=== PATIENT | female | born 1990 | race African-American/Black ===

== ENCOUNTER 2017-09-07 14:47 | Emergency (ER) | payer MEDICAID ==
[~2017-09-07] VITALS: Ht 170.2 cm; Wt 80.0 kg
[2017-09-07] MEDS ORDERED: IBUPROFEN 400MG TABLET PO ONE (16:15)
[2017-09-07] MEDS ORDERED: ACETAMINOPHEN 500MG TABLET PO ONE ×2 (16:15→16:30)
[2017-09-07 16:22] VITALS: BP 121/76
== END 2017-09-07 16:53 | disposition home or self-care (01) ==
LOC: ER 15:02
DX: M54.5 Low back pain (principal); Z87.828 Personal history of other (healed) physical injury and trauma
CPT/HCPCS: 99283

== ENCOUNTER 2017-10-04 18:14 | Emergency (ER) | payer MEDICAID ==
[~2017-10-04] VITALS: Ht 162.6 cm; Wt 80.0 kg
[2017-10-04 22:13] LABS: BASOPHILS % 0.3 % (0.0-2.0); EOSINOPHILS % 1.8 % (0.0-5.0); HEMATOCRIT. 30.8 % (36.0-48.0); HEMOGLOBIN. 11.1 g/dL (12.0-16.0); LYMPHOCYTES % 33.5 % (20.0-50.0); MEAN CORPUSCULAR HEMOGLOBIN 34.9 pg (28.0-32.0); MEAN CORPUSCULAR VOLUME 97.1 fL (81.0-99.0); MEAN PLATELET VOLUME 7.1 fl (7.4-10.4); MONOCYTES % 7.3 % (2.0-8.0); NEUTROPHILS % 57.1 % (40.0-76.0); PLATELET 299 x1000/uL (130-400); RED BLOOD CELL COUNT 3.17 mill/uL (4.2-5.4); RED CELL DISTRIBUTION WIDTH 13.2 % (11.6-14.6)
[2017-10-04 22:18] LABS: CHLORIDE 107 mEq/L (98-107)
[2017-10-04 22:23] LABS: ETHANOL BLOOD < 10 mg/dL
[2017-10-04] MEDS ORDERED: ALBUTEROL (0.083%) 2.5MG/3ML NEB HHN ONE (23:00)
[2017-10-05 00:05] VITALS: BP 112/75
== END 2017-10-05 00:18 | disposition home or self-care (01) ==
LOC: ER 18:14
DX: Z76.0 Encounter for issue of repeat prescription (principal); F20.9 Schizophrenia, unspecified; F41.9 Anxiety disorder, unspecified; J45.909 Unspecified asthma, uncomplicated; F32.9 Major depressive disorder, single episode, unspecified
CPT/HCPCS: 36415; 80048; 80307; 80329; 85025; 99284; G0482; J7611

== ENCOUNTER 2018-01-07 08:40 | Emergency (ER) | payer MEDICAID ==
[~2018-01-07] VITALS: Ht 162.6 cm; Wt 82.4 kg
[2018-01-07] MEDS ORDERED: qvar (08:57)
[2018-01-07] MEDS ORDERED: singulair (08:57)
[2018-01-07] MEDS ORDERED: albuterol (08:57)
[2018-01-07 11:25] VITALS: BP 109/70
== END 2018-01-07 12:00 | disposition home or self-care (01) ==
LOC: ER 08:40
DX: O99.513 Diseases of the respiratory system complicating pregnancy, third trimester (principal); R10.9 Unspecified abdominal pain; J45.909 Unspecified asthma, uncomplicated; Z3A.28 28 weeks gestation of pregnancy
CPT/HCPCS: 76805; 81025; 99284

== ENCOUNTER 2018-01-18 23:02 | Emergency (ER) | payer MEDICAID ==
[~2018-01-18] VITALS: Ht 162.6 cm; Wt 69.0 kg
[~2018-01-18 23:02] MED LIST: albuterol; qvar; singulair
[2018-01-18] MEDS ORDERED: ALBUTEROL (0.083%) 2.5MG/3ML NEB HHN STA (23:35)
[2018-01-19 01:10] VITALS: BP 121/86
== END 2018-01-19 02:00 | disposition home or self-care (01) ==
LOC: ER 23:02
DX: O99.513 Diseases of the respiratory system complicating pregnancy, third trimester (principal); J45.901 Unspecified asthma with (acute) exacerbation; Z3A.29 29 weeks gestation of pregnancy
CPT/HCPCS: 93005; 94640; 99283; G0378; J7611

== ENCOUNTER 2018-03-08 11:10 | Emergency (ER) | payer MEDICAID ==
[~2018-03-08] VITALS: Ht 162.6 cm; Wt 100.0 kg
[2018-03-08 11:16] VITALS: BP 117/68
== END 2018-03-08 13:19 | disposition left against medical advice (07) ==
LOC: ER 12:13
DX: Z53.21 Procedure and treatment not carried out due to patient leaving prior to being seen by health care provider (principal)

== ENCOUNTER 2018-03-21 23:28 | Observation (INO) | payer MEDICAID ==
[2018-03-22] MEDS ORDERED: LACTATED RINGERS 1,000 ML IV SCH (00:20)
== END 2018-03-22 02:41 | disposition home or self-care (01) ==
LOC: INTOOBSV 23:28 → OBSVTOIN 23:28 → 8 EST LDRP 23:28
PROVIDERS: ADMIT Obstetrics & Gynecology; ATTEND Obstetrics & Gynecology
DX: O48.0 Post-term pregnancy (principal); O26.893 Other specified pregnancy related conditions, third trimester; R10.30 Lower abdominal pain, unspecified; M54.5 Low back pain; R10.2 Pelvic and perineal pain; Z3A.40 40 weeks gestation of pregnancy
CPT/HCPCS: G0378 ×2

== ENCOUNTER 2018-03-22 08:43 | Inpatient (IN) | payer MEDICAID ==
[~2018-03-22] VITALS: Ht 162.6 cm; Wt 90.7 kg
[2018-03-22] MEDS ORDERED: DEXT 5%/LR + PITOCIN 20UNITS/L 1,000 ML IV SCH ×2 (09:30→14:00)
[2018-03-22] MEDS ORDERED: CARBOPROST TROMETHAMINE 250 MCG/ML AMPUL IM PRN (09:30)
[2018-03-22] MEDS ORDERED: METHYLERGONOVINE MALEATE 0.2 MG/ML IM PRN (09:30)
[2018-03-22] MEDS ORDERED: BUTORPHANOL TARTRATE 2 MG/ML VIAL IV PRN (09:30)
[2018-03-22] MEDS ORDERED: NALOXONE HCL 0.4 MG/ML 1ML VIAL IM PRN (09:30)
[2018-03-22] MEDS: LACTATED RINGERS 1,000 ML IV SCH ×2 (09:53→12:32)
[2018-03-22] MEDS ORDERED: PENICILLIN G POTASSIUM 5 MMU in DEXT 5% WATER 100 ML IV SCH (10:00)
[2018-03-22 10:10] LABS: HEMATOCRIT. 40.5 % (36.0-48.0); MEAN CORPUSCULAR HEMOGLOBIN 34.1 pg (28.0-32.0); MEAN CORPUSCULAR VOLUME 98.6 fL (81.0-99.0); MEAN PLATELET VOLUME 8.5 fl (7.4-10.4); PLATELET 222 x1000/uL (130-400); RED BLOOD CELL COUNT 4.11 mill/uL (4.2-5.4); RED CELL DISTRIBUTION WIDTH 14.7 % (11.6-14.6)
[2018-03-22 10:17] LABS: CLARITY URINE CLOUDY (CLEAR); COLOR URINE YELLOW (YELLOW); KETONES URINE 1+ (NEGATIVE); LEUKOCYTE ESTERASE URINE 2+ (NEGATIVE); NITRITE URINE NEGATIVE (NEGATIVE); OCCULT BLOOD URINE 3+ (NEGATIVE); PROTEIN URINE NEGATIVE (NEGATIVE); SPECIFIC GRAVITY URINE 1.024 (1.005-1.030)
[2018-03-22 10:23] LABS: INR 0.9; PROTHROMBIN TIME 9.3 sec (9.1-11.1)
[2018-03-22 11:28] LABS: *AMPHETAMINES SCREEN URINE NEGATIVE (NEGATIVE); *BARBITURATES SCREEN URINE NEGATIVE (NEGATIVE); *BENZODIAZEPINES SCREEN URINE NEGATIVE (NEGATIVE); *COCAINE SCREEN URINE NEGATIVE (NEGATIVE); METHADONE URINE SCREEN NEGATIVE (NEGATIVE); OPIATES URINE SCREEN NEGATIVE (NEGATIVE)
[2018-03-22 11:29] LABS: CANNABINOID URINE SCREEN NEGATIVE (NEGATIVE); PHENCYCLIDINE URINE SCREEN NEGATIVE (NEGATIVE)
[2018-03-22] MEDS ORDERED: BUPIVACAINE HCL/NS/PF EPIDURAL 100 ML EP ONE (12:03)
[2018-03-22 12:49] LABS: HEPATITIS B SURFACE ANTIGEN NEGATIVE
[2018-03-22 13:05] LABS: PLATELET ESTIMATE NORMAL
[2018-03-22] MEDS ORDERED: GLYCERIN/WITCH HAZEL LEAF MEDICATED PAD TOP PRN (13:45)
[2018-03-22] MEDS ORDERED: BISACODYL 10MG SUPP PR PRN (13:45)
[2018-03-22] MEDS ORDERED: BENZOCAINE/LANOLIN/ALOE VERA SPRAY TOP PRN (13:45)
[2018-03-22] MEDS ORDERED: HEMORRHOIDAL SUPP PR PRN (13:45)
[2018-03-22] MEDS ORDERED: PENICILLIN G POTASSIUM 2.5 MMU in DEXTROSE 5% WATER 50 ML IV SCH (14:00)
[2018-03-22] MEDS: ACETAMINOPHEN WITH CODEINE 300/30MG TABLET PO PRN ×2 (14:21→22:22)
[2018-03-22 14:35] VITALS: BP 125/78
[2018-03-22 15:00] VITALS: BP 124/74
[2018-03-22 16:56] VITALS: BP 116/66
[2018-03-22] MEDS: SIMETHICONE 80MG TABLET CHEW PO SCH (21:00)
[2018-03-22] MEDS: MAGNESIUM/ALUMINUM HYDROXIDE/SIMETHICONE 30ML UDC PO SCH (21:00)
[2018-03-22] MEDS: DOCUSATE SODIUM 100MG CAPSULE PO SCH (21:35)
[2018-03-22 22:00] VITALS: BP 135/86
[2018-03-23] MEDS: ACETAMINOPHEN WITH CODEINE 300/30MG TABLET PO PRN ×2 (01:55→18:48)
[2018-03-23 04:00] VITALS: BP 128/84
[2018-03-23 07:30] VITALS: BP 116/77
[2018-03-23] MEDS ORDERED: FERROUS SULFATE 325MG TABLET PO SCH (07:30)
[2018-03-23 07:39] LABS: BASOPHILS % 0.2 % (0.0-2.0); EOSINOPHILS % 0.3 % (0.0-5.0); HEMATOCRIT. 34.2 % (36.0-48.0); HEMOGLOBIN. 11.9 g/dL (12.0-16.0); LYMPHOCYTES % 20.6 % (20.0-50.0); MEAN CORPUSCULAR HEMOGLOBIN 34.4 pg (28.0-32.0); MEAN PLATELET VOLUME 8.5 fl (7.4-10.4); MONOCYTES % 7.9 % (2.0-8.0); PLATELET 199 x1000/uL (130-400); RED BLOOD CELL COUNT 3.46 mill/uL (4.2-5.4); RED CELL DISTRIBUTION WIDTH 14.7 % (11.6-14.6)
[2018-03-23] MEDS: PRENATAL VIT/FE FUMARATE/FA TABLET PO SCH (08:35)
[2018-03-23] MEDS: SIMETHICONE 80MG TABLET CHEW PO SCH ×2 (08:36→21:14)
[2018-03-23 20:50] VITALS: BP 112/77
[2018-03-23] MEDS: DOCUSATE SODIUM 100MG CAPSULE PO SCH (21:14)
[2018-03-24 04:50] VITALS: BP 117/81
[2018-03-24] MEDS: ACETAMINOPHEN WITH CODEINE 300/30MG TABLET PO PRN (06:22)
[2018-03-24 08:00] VITALS: BP 116/81
[2018-03-24] MEDS: MAGNESIUM/ALUMINUM HYDROXIDE/SIMETHICONE 30ML UDC PO SCH (08:19)
[2018-03-24] MEDS: SIMETHICONE 80MG TABLET CHEW PO SCH (08:19)
[2018-03-24] MEDS: PRENATAL VIT/FE FUMARATE/FA TABLET PO SCH (08:19)
== END 2018-03-24 12:05 | disposition home or self-care (01) | DRG 560 ==
LOC: OBSVTOIN 08:43 → 8 EST LDRP 08:43 → CANBEDREQ 14:35 → 8EST 15:09
PROVIDERS: ADMIT Obstetrics & Gynecology; ATTEND Obstetrics & Gynecology
PROC: 10E0XZZ Delivery of Products of Conception, External Approach (ICD-10-PCS; principal; 2018-03-22)
DX: O77.0 Labor and delivery complicated by meconium in amniotic fluid (principal); Z37.0 Single live birth; Z3A.38 38 weeks gestation of pregnancy
CPT/HCPCS: 36415; 80305; 86592; 86703; 86762; 86850; 86900; 87340; 99281; J0595; J2310; J2540; J2590; J3490; J7060; A4315